=== PATIENT | male | born 1960 | race Caucasian/White ===

== ENCOUNTER 2018-08-22 19:15 | Emergency (ER) | payer OTHER ==
[~2018-08-22] VITALS: Ht 167.6 cm; Wt 73.3 kg
[2018-08-22 19:53] VITALS: Ht 167.6 cm; Wt 73.3 kg
--- NOTE | 2018-08-22 23:13 | ERD ---
ER Documentation Chief Complaint Chief Complaint "bump" possible cyst to the left ankle x 2 days HPI This is a 57-year-old male presents to emerge department with complaints of foot/ankle pain for about 2 days. Denies trauma. Stated that his skin on that side is warm to touch. Has limited range of motion due to pain. Denies headache, head injury, loss of consciousness, dizziness, neck pain, neck stiffness, throat pain, difficulty swallowing, difficulty breathing lying flat, shoulder pain, chest pain, back pain, abdominal pain, nausea, vomiting, constipation, diarrhea, urinary symptoms, loss of bowel and bladder control, trauma, injury, falls, difficulty walking due to pain, numbness or tingling sensation, calf pain, recent travel, recent major surgery in the last 3 weeks, calf pain, recent long travel, recent exposure to any illness, recent antibiotic use in the last 3 months, fever, chills, seizures. Past medical history: Diabetes. Surgical history: Social: Denies smoking, use of alcoholic beverages, use of illegal drugs. ROS All systems reviewed and are negative except as per history of present illness. Medications Home Meds Active Scripts Omeprazole* (Omeprazole*) 40 Mg Capsule.dr, 40 MG PO DAILY, #30 CAP Prov:PASILABAN,KLAR F 08/23/18 Ibuprofen* (Motrin*) 800 Mg Tab, 800 MG PO Q6H PRN for PAIN AND OR ELEVATED TEMP, #30 TAB Prov:PASILABAN,KLAR F 08/23/18 Cephalexin* (Keflex*) 500 Mg Capsule, 500 MG PO TID for 7 Days, CAP Prov:PASILABAN,KLAR F 08/23/18 Sulfamethoxazole/Trimethoprim* (Bactrim Ds* Tablet) 1 Each Tablet, 1 TAB PO BID for 7 Days, #14 TAB Prov:PASILABAN,KLAR F 08/23/18 Allergies Allergies: Coded Allergies: No Known Allergy (Unverified , 08/22/18) PMhx/Soc Medical and Surgical Hx: pt denies Medical Hx, pt denies Surgical Hx Hx Alcohol Use: No Hx Substance Use: No Hx Tobacco Use: No Smoking Status: Never smoker Physical Exam Vitals Physical Exam Const: No acute distress Head: Atraumatic Eyes: Normal Conjunctiva ENT: Normal External Ears, Nose and Mouth. Neck: Full range of motion. No meningismus. Resp: Clear to auscultation bilaterally Cardio: Regular rate and rhythm, no murmurs Abd: Soft, non tender, non distended. Normal bowel sounds Skin: No petechiae or rashes Back: No midline or flank tenderness Ext: No cyanosis, or edema. Left ankle: Inner area has mild swelling/tenderness/warm to touch. No deformity. Left foot: Pedal pulses within normal limits. Good and full range of motion of toes. Capillary refills is less than 2 seconds. Distal area of left tibia and fibula has no swelling/deformity/tenderness/discoloration and its skin is not warm to touch. Left knee is unremarkable. Bilateral hips are stable and unremarkable. Right lower extremity is unremarkable. Neur: Awake and alert. No neurological deficits. Psych: Normal Mood and Affect Results 24 hrs Laboratory Tests Test 08/22/18 23:16 08/22/18 23:17 08/29/18 10:11 Erythrocyte Sedimentation 30 mm/Hr Rate White Blood Count 9.8 10^3/ul Red Blood Count 3.28 10^6/ul Hemoglobin 10.5 g/dl Hematocrit 33.0 % Mean Corpuscular Volume 100.6 fl Mean Corpuscular 32.0 pg Hemoglobin Mean Corpuscular 31.8 g/dl Hemoglobin Concent Red Cell Distribution 15.1 % Width Platelet Count 157 10^3/UL Mean Platelet Volume 11.5 fl Immature Granulocytes % 17.700 % Neutrophils % 55.2 % Segmented Neutrophils 46 % % (Manual) Band Neutrophils % 13 % (Manual) Lymphocytes % 10.4 % Lymphocytes % (Manual) 14 % Monocytes % 12.2 % Monocytes % (Manual) 10 % Eosinophils % 2.7 % Eosinophils % (Manual) 5 % Basophils % 1.8 % Metamyelocytes % (manual) 1 % Myelocytes % (Manual) 9 % Blast Cells % (Manual) 2.0 % Nucleated Red Blood Cells 0.0 /100WBC % Immature Granulocytes # 1.740 10^3/ul Neutrophils # 5.4 10^3/ul Neutrophils # (Manual) 4.6 10^3/ul Band Neutrophils # 1.2 10^3/ul Lymphocytes (Manual) 1.3 10^3/ul Lymphocytes # 1.0 10^3/ul Monocytes # 1.2 10^3/ul Monocytes # (Manual) 0.9 10^3/ul Eosinophils # 0.3 10^3/ul Basophils # 0.2 10^3/ul Metamyelocytes # 0.0 10^3/ul Myelocytes # 0.8 10^3/ul Nucleated Red Blood Cells 0.0 10^3/ul # Platelet Estimate NORMAL Giant Platelets 2 % Polychromasia 1+ Anisocytosis 1+ Urine Random Uric Acid Sodium Level 138 mmol/L Potassium Level 4.0 mmol/L Chloride Level 103 mmol/L Carbon Dioxide Level 27 mmol/L Anion Gap 8 Blood Urea Nitrogen 20 mg/dl Creatinine 0.88 mg/dl Est Glomerular Filtrat > 60 mL/min Rate mL/min Glucose Level 192 mg/dl Uric Acid 6.0 mg/dl Calcium Level 8.7 mg/dl Total Bilirubin 0.4 mg/dl Direct Bilirubin 0.00 mg/dl Indirect Bilirubin 0.4 mg/dl Aspartate Amino 15 IU/L Transf (AST/SGOT) Alanine 15 IU/L Aminotransferase (ALT/SGPT ) Alkaline Phosphatase 103 IU/L C-Reactive Protein 1.0 mg/dl Total Protein 7.3 g/dl Albumin 4.3 g/dl Globulin 3.00 g/dl Albumin/Globulin Ratio 1.43 Lab Scanned Report REFER[facility] [id number] Current Medications Medications Dose Sig/Emilia Start Time Status Last (Trade) Ordered Route PRN Stop Time Admin Dose Reason Admin Morphine 4 mg ONCE STAT 08/22/18 DC 08/22/18 Sulfate IM 23:14 23:20 (morphine) 08/22/18 23:15 Ketorolac 30 mg ONCE STAT 08/22/18 DC 08/22/18 Tromethamine IM 23:14 23:20 (Toradol) 08/22/18 23:15 Procedures/MDM Diagnostic tests: X-ray of the left ankle: Unremarkable left ankle. Ultrasound of the soft tissue/ankle: Findings compatible with cellulitis. No evidence of focal abscess. The ankle tendons are not evaluated on this examination. Blood works: Reviewed. Treatment: Morphine IM Toradol IM. Re-evaluation: Denies ankle pain. Good and full range of motion of left ankle. No neurovascular deficit. Ambulatory with steady gait. Differential diagnosis I have low suspicion for septic joint, sepsis, deep space infection, DVT, osteomyelitis, compartment syndrome. Final diagnosis: Cellulitis. Prescription: Bactrim. Keflex. Motrin. Omeprazole. Follow-up with PCP in the next 24-48 hours. Come back here in the emergency department for any new symptoms or any worsening symptoms. All questions and concerns were answered. Patient and family members verbalized understanding and agreed with plan of care. Hemodynamically stable on discharge. Departure Diagnosis: Primary Impression: Cellulitis Condition: Stable Additional Instructions: Follow-up with PCP in the next 24-48 hours. Come back here in the emergency department for any new symptoms or any worsening symptoms. EMILY CHAMORRO August 22, 2018 23:13
[2018-08-22] MEDS ORDERED: KETOROLAC 30 MG INJ IM STA (23:14)
[2018-08-22] MEDS ORDERED: morphine 4 MG/ML VIAL IM STA (23:14)
[2018-08-23] MEDS ORDERED: SULF1TAB31 PO (02:09)
[2018-08-23] MEDS ORDERED: CEPH-443 PO (02:09)
[2018-08-23] MEDS ORDERED: OMEP40CA6 PO (02:10)
[2018-08-23] MEDS ORDERED: IBUP800T48 PO (02:10)
[2018-08-23 02:27] VITALS: BP 115/64; PULSE 71; RESP 17
== END 2018-08-23 02:27 | disposition home or self-care (01) ==
LOC: FTE 19:15
DX: L03.115 Cellulitis of right lower limb (principal)
CPT/HCPCS: 73610; 76536; 80053; 84560; 85025; 85651; 86140; 96372; J1885; J2270; Z7502